=== PATIENT | male | born 1975 | race Caucasian/White ===

== ENCOUNTER → 2021-10-04 | Outpatient (CLI) | payer BC ==
[2021-10-04 18:38] LABS: HEMOGLOBIN 15.2 gm/dl (14.0-17.5); RED BLOOD COUNT 4.99 M/UL (4.20-5.50); WHITE BLOOD COUNT 7.4 K/UL (4.5-11.0)
[2021-10-04 19:12] LABS: BUN/CREATININE RATIO 12 (0-10)
[2021-10-06 08:17] LABS: THYROXINE (T4) 6.1 ug/dL (4.5-12.0); VITAMIN D, 25-HYDROXY 20.1 ng/mL (30.0-100.0)
== END ==
LOC: LAB 17:32
PROVIDERS: Nurse Practitioner Family
DX: E11.9 Type 2 diabetes mellitus without complications (principal); E78.5 Hyperlipidemia, unspecified; R53.83 Other fatigue
CPT/HCPCS: 80053; 80061; 81001; 83036; 84436; 84443; 84480; 85025